=== PATIENT | male | born 1980 | race Hispanic/Latino ===

== ENCOUNTER 2023-09-12 16:02 | Emergency (ER) | payer OTHER ==
[~2023-09-12] VITALS: Ht 167.6 cm; Wt 95.3 kg
[2023-09-12 16:16] VITALS: BP 139/88; PULSE 115; RESP 16; O2SAT 97
[2023-09-12] MEDS ORDERED: OXYM30SP27 NS (17:30)
== END 2023-09-12 17:37 | disposition home or self-care (01) ==
LOC: EDH 16:02
DX: R04.0 Epistaxis (principal); I10 Essential (primary) hypertension; Z59.7 Insufficient social insurance and welfare support
CPT/HCPCS: 99282